=== PATIENT | female | born 1955 | race Caucasian/White ===

== ENCOUNTER → 2017-02-10 | Outpatient (CLI) | payer BC ==
--- NOTE | 2017-02-11 13:51 | RADRPT ---
PROCEDURE: XR Right hip and pelvis. CLINICAL INDICATION: Right hip pain and pelvic pain. TECHNIQUE: 3 views. Frontal pelvis. Frontal and lateral right hip. COMPARISON: None. FINDINGS: There is no fracture or dislocation. The soft tissues are normal. There are degenerative changes of both hips with osteophytes and mild joint space narrowing. There is no lytic or blastic lesion. There is no radiopaque foreign body. IMPRESSION: 1. Mild degenerative changes of both hips. 2. Otherwise unremarkable study. RPTAT: QQ .Ceasar Marsh MD, MD Date Time Electronically viewed and signed by .Ceasar Marsh MD, MD on 02/11/2017 13:50 .R/
== END | disposition home or self-care (01) ==
LOC: HKI 15:08
PROVIDERS: ATTEND Orthopaedic Surgery
DX: M54.16 Radiculopathy, lumbar region (principal); M51.36 Other intervertebral disc degeneration, lumbar region
CPT/HCPCS: 73502; G0463